=== PATIENT | male | born 1960 | race African-American/Black ===

== ENCOUNTER 2021-06-01 05:53 | Emergency (ER) | payer BC, MEDICAID ==
[~2021-06-01] VITALS: Ht 175.3 cm; Wt 170.0 kg
[2021-06-01 06:48] LABS: BASOPHILS % 0.6 % (0.0-2.0); EOSINOPHILS % 1.3 % (0.0-5.0); HEMATOCRIT. 44.3 % (42.0-52.0); HEMOGLOBIN. 15.1 g/dL (14.0-18.0); LYMPHOCYTES % 26.4 % (20.0-50.0); MEAN CORPUSCULAR HEMOGLOBIN 31.3 pg (28.0-32.0); MEAN CORPUSCULAR VOLUME 91.7 fL (80.0-94.0); MONOCYTES % 9.5 % (2.0-8.0); NEUTROPHILS % 62.2 % (40.0-76.0); PLATELET 178 x1000/uL (130-400); RED BLOOD CELL COUNT 4.83 mill/uL (4.7-6.1); RED CELL DISTRIBUTION WIDTH 14.2 % (11.6-14.6)
[2021-06-01 06:55] LABS: CHLORIDE 106 mEq/L (98-107)
[2021-06-01] MEDS ORDERED: FUROSEMIDE 40MG/4ML VIAL IV ONE (07:45)
[2021-06-01] MEDS ORDERED: ASPIRIN 81MG TABLET PO ONE (07:45)
[2021-06-01] MEDS ORDERED: IOHEXOL-350 100 ML BOTTLE ONE (14:30)
[2021-06-01 18:00] VITALS: BP 130/88
== END 2021-06-01 20:00 | disposition short-term general hospital (02) ==
LOC: ER 05:53
DX: R06.03 Acute respiratory distress (principal); I11.0 Hypertensive heart disease with heart failure; I50.9 Heart failure, unspecified; E11.9 Type 2 diabetes mellitus without complications; E78.00 Pure hypercholesterolemia, unspecified; Z20.822 Contact with and (suspected) exposure to COVID-19
CPT/HCPCS: 36415; 71045; 71275; 80053; 83880; 84484; 85025; 85379; 87426; 93005; 96374; 99285; J1940; Q9967

== ENCOUNTER 2024-05-14 21:05 | Emergency (ER) | payer BC, MEDICAID ==
[~2024-05-14] VITALS: Ht 177.8 cm; Wt 141.0 kg
[2024-05-14 21:07] VITALS: O2SAT 97
[2024-05-14 22:59] LABS: BASOPHILS % 0.4 % (0.0-2.0); HEMATOCRIT. 45.1 % (42.0-52.0); HEMOGLOBIN. 15.4 g/dL (14.0-18.0); LYMPHOCYTES % 19.3 % (20.0-50.0); MEAN CORPUSCULAR HEMOGLOBIN 32.1 pg (28.0-32.0); MEAN CORPUSCULAR HGB CONC 34.1 g/dL (31.0-37.0); MEAN CORPUSCULAR VOLUME 94.2 fL (80.0-94.0); MEAN PLATELET VOLUME 7.8 fl (7.4-10.4); MONOCYTES % 8.9 % (2.0-8.0); NEUTROPHILS % 70.4 % (40.0-76.0); PLATELET 193 x1000/uL (130-400); RED BLOOD CELL COUNT 4.79 mill/uL (4.7-6.1); RED CELL DISTRIBUTION WIDTH 14.1 % (11.6-14.6); WHITE BLOOD COUNT 7.5 x1000/uL (4.5-11.0)
[2024-05-14 23:05] LABS: CHLORIDE 105 mEq/L (98-107); SODIUM 139 mEq/L (136-145)
[2024-05-14 23:06] LABS: CALCIUM 9.5 mg/dL (8.7-10.4); CARBON DIOXIDE 25 mEq/L (21-32)
[2024-05-14 23:11] LABS: CREATININE 0.9 mg/dL (0.6-1.3); GLUCOSE 112 mg/dL (70-105); UREA NITROGEN BLOOD 13 mg/dL (9-23)
[2024-05-14] MEDS ORDERED: IOHEXOL-300 100 ML BOTTLE ONE (23:54)
[2024-05-15] MEDS ORDERED: SULF1TAB48 MT (01:42)
[2024-05-15] MEDS ORDERED: AMOX1TAB16 MT (01:42)
[2024-05-15 01:55] VITALS: BP 129/86; PULSE 72; RESP 20; TEMP 36.61404; O2SAT 100
== END 2024-05-15 01:55 | disposition home or self-care (01) ==
LOC: ER 21:05
DX: L02.01 Cutaneous abscess of face (principal); K04.7 Periapical abscess without sinus; H10.9 Unspecified conjunctivitis; K02.9 Dental caries, unspecified; I10 Essential (primary) hypertension; E78.00 Pure hypercholesterolemia, unspecified; E11.9 Type 2 diabetes mellitus without complications
CPT/HCPCS: 99285; 70487; 80048; 85025; 36415; Q9967

== ENCOUNTER 2024-12-30 12:37 | Emergency (ER) | payer BC, MEDICAID ==
[~2024-12-30] VITALS: Ht 180.3 cm; Wt 118.0 kg
[~2024-12-30 12:37] MED LIST: AMOX1TAB16 MT; SULF1TAB48 MT
[2024-12-30 12:48] VITALS: O2SAT 100
[2024-12-30 15:44] LABS: BASOPHILS % 0.4 % (0.0-2.0); EOSINOPHILS % 0.6 % (0.0-5.0); HEMATOCRIT. 44.5 % (42.0-52.0); HEMOGLOBIN. 14.9 g/dL (14.0-18.0); LYMPHOCYTES % 16.9 % (20.0-50.0); MEAN PLATELET VOLUME 8.0 fl (7.4-10.4); MONOCYTES % 8.3 % (2.0-8.0); NEUTROPHILS % 73.8 % (40.0-76.0); PLATELET 215 x1000/uL (130-400); RED BLOOD CELL COUNT 4.80 mill/uL (4.7-6.1); RED CELL DISTRIBUTION WIDTH 15.2 % (11.6-14.6)
[2024-12-30 15:52] LABS: INR 1.0
[2024-12-30 16:00] LABS: CREATININE 0.9 mg/dL (0.6-1.3)
[2024-12-30 16:01] LABS: UREA NITROGEN BLOOD 10 mg/dL (9-23)
[2024-12-30] MEDS ORDERED: CEPH500C2 MT (17:16)
[2024-12-30] MEDS ORDERED: SULF1TAB48 MT (17:16)
[2024-12-30 17:35] VITALS: BP 155/80; PULSE 85; RESP 16; TEMP 36.7; O2SAT 100
== END 2024-12-30 17:36 | disposition home or self-care (01) ==
LOC: ER 12:37
DX: M79.601 Pain in right arm (principal); E11.9 Type 2 diabetes mellitus without complications; E78.00 Pure hypercholesterolemia, unspecified; I10 Essential (primary) hypertension; Z79.899 Other long term (current) drug therapy
CPT/HCPCS: 36415; 73080; 73090; 80048; 85025; 93971; 99284